=== PATIENT | female | born 1955 | race Two or more races ===

== ENCOUNTER 2021-01-20 20:21 | Inpatient (IN) | payer MEDICAID, OTHER ==
[~2021-01-20] VITALS: Ht 172.7 cm; Wt 59.0 kg
[2021-01-20] MEDS ORDERED: SODIUM CHLORIDE 0.9% 1,000 ML IV ONE (20:45)
[2021-01-20 22:04] LABS: Urine Bacteria FEW /hpf (None Seen); Urine Blood TRACE /uL (Negative); Urine Specific Gravity 1.011 (1.001-1.035); Urine WBC 4 /hpf (0 - 5)
[2021-01-20 22:07] LABS: Alcohol, Urine < 3.0 mg/dL (0-10); Amphetamine Screen, Urine NEGATIVE (NEGATIVE); Barbiturate Scree,Urine NEGATIVE (NEGATIVE); Benzodiazephine Screen, Urine NEGATIVE (NEGATIVE); Cannabinoid Screen, Urine NEGATIVE (NEGATIVE); Cocaine Screen, Urine NEGATIVE (NEGATIVE); Opiate Scree,Urine NEGATIVE (NEGATIVE); Phencyclidine Screen, Urine NEGATIVE (NEGATIVE)
[2021-01-20 22:25] LABS: Basophils # (auto) 0 10 ^3/uL (0-0.2); Basophils % (auto) 0.2 % (0.0-2.0); Eosinophils # (auto) 0.2 10 ^3/uL (0-0.8); Eosinophils % (auto) 1.5 % (0.0-7.0); Hematocrit 44.7 % (36.0-46.0); Hemoglobin 14.2 g/dL (12.2-16.2); Lymphocytes # (auto) 1.8 10 ^3/uL (0.4-5.4); Lymphocytes % (auto) 12.9 % (10.0-50.0); Mean Corpuscular Hemoglobin 28.2 pg (28.0-32.0); Mean Corpuscular Hgb Conc. 31.7 g/dL (32.0-36.0); Monocytes # (auto) 0.9 10 ^3/uL (0-1.3); Monocytes % (auto) 6.4 % (0.0-12.0); Neutrophils # (auto) 11.2 10 ^3/uL (1.6-8.6); Red Blood Cells 5.02 10^6/uL (4.0-5.20); Red Cell Distribution Width 15.7 % (11.8-14.3); White Blood Cell 14.2 10^3/uL (4.4-10.8)
[2021-01-20 22:39] LABS: Acetaminophen < 2.0 ug/mL (10-30); Salicylate 2.7 mg/dL (2.8-20.0)
[2021-01-20 22:40] LABS: Albumin 2.3 g/dL (3.4-5.0); Anion Gap 12 (5-15); BUN/Creatinine Ratio 14.9; Blood Urea Nitrogen 42 mg/dL (7-18); Calcium 8.1 mg/dL (8.5-10.1); Carbon Dioxide 20 mmol/L (21-32); Chloride 111 mmol/L (98-107); GFR African American 22 mL/min; GFR Non-African American 18 mL/min; Glucose 144 mg/dL (74-106); Lipase 18 U/L (73-393); Magnesium 2.7 mg/dL (1.6-2.6); Potassium 4.2 mmol/L (3.5-5.1); Sodium 143 mmol/L (136-145)
[2021-01-20 22:43] LABS: Alanine Aminotransferase 75 U/L (13-56); Alkaline Phosphatase 215 U/L (45-117); Aspartate Aminotransferase 75 U/L (15-37); Bilirubin, Total 0.2 mg/dL (0.2-1.0); Total Protein 6.8 g/dL (6.4-8.2)
[2021-01-20] MEDS ORDERED: NALOXONE HCL 2 MG in D5W 5% 495 ML IV ONE (23:30)
[2021-01-20] MEDS ORDERED: NALOXONE HCL 0.4 MG/ML VIAL ONE (23:50)
[2021-01-20] MEDS ORDERED: NALOXONE HCL 1MG/ML 2ML SYRINGE ONE (23:51)
[2021-01-21] MEDS ORDERED: ACETAMINOPHEN 325 MG TAB PO PRN (04:15)
[2021-01-21] MEDS ORDERED: ALBUMIN 25% 50 ML IV ONE (04:15)
[2021-01-21] MEDS ORDERED: MORPHINE SULFATE INJECTION 2 MG/ML SYRG IV PRN ×2 (04:15→18:30)
[2021-01-21] MEDS ORDERED: DOCUSATE SOD 100 MG CAP PO PRN (04:15)
[2021-01-21] MEDS ORDERED: ONDANSETRON HCL 4 MG/2 ML VIAL IV PRN (04:15)
[2021-01-21] MEDS ORDERED: NITROGLYCERIN 0.4 MG SL TAB SL PRN ×2 (04:15→18:30)
[2021-01-21] MEDS ORDERED: HYDROcodone-ACET 5/325MG TAB PO PRN (04:15)
[2021-01-21 05:24] LABS: Basophils # (auto) 0 10 ^3/uL (0-0.2); Basophils % (auto) 0.1 % (0.0-2.0); Eosinophils # (auto) 0.1 10 ^3/uL (0-0.8); Eosinophils % (auto) 0.7 % (0.0-7.0); Hematocrit 45.5 % (36.0-46.0); Hemoglobin 14.5 g/dL (12.2-16.2); Lymphocytes # (auto) 1.6 10 ^3/uL (0.4-5.4); Lymphocytes % (auto) 12.2 % (10.0-50.0); Mean Corpuscular Hemoglobin 29.2 pg (28.0-32.0); Mean Corpuscular Hgb Conc. 31.9 g/dL (32.0-36.0); Mean Corpuscular Volume 91.4 fL (80.0-100.0); Monocytes # (auto) 0.6 10 ^3/uL (0-1.3); Monocytes % (auto) 4.2 % (0.0-12.0); Neutrophils % (auto) 82.8 % (37.0-80.0); Nucleated Red Blood Cells % 0.1 %; Red Blood Cells 4.98 10^6/uL (4.0-5.20); Red Cell Distribution Width 15.8 % (11.8-14.3); White Blood Cell 13.3 10^3/uL (4.4-10.8)
[2021-01-21] MEDS: SODIUM CHLOR 0.9% PF (SALINE LOCK) 10ML VIAL/SYR IV SCH ×3 (06:00→23:45)
[2021-01-21 06:39] LABS: Albumin 2.3 g/dL (3.4-5.0); Anion Gap 13 (5-15); Blood Urea Nitrogen 44 mg/dL (7-18); Calcium 8.2 mg/dL (8.5-10.1); Carbon Dioxide 13 mmol/L (21-32); Chloride 116 mmol/L (98-107); Glucose 187 mg/dL (74-106); Potassium 4.4 mmol/L (3.5-5.1); Sodium 142 mmol/L (136-145)
[2021-01-21 06:43] LABS: Alanine Aminotransferase 75 U/L (13-56); Alkaline Phosphatase 228 U/L (45-117); Aspartate Aminotransferase 57 U/L (15-37); BUN/Creatinine Ratio 17.5; Bilirubin, Total 0.1 mg/dL (0.2-1.0); GFR African American 25 mL/min; GFR Non-African American 21 mL/min; Total Protein 6.9 g/dL (6.4-8.2)
[2021-01-21] MEDS ORDERED: AMMONIA 0.33 ML INHALANT IN ONE (07:28)
[2021-01-21] MEDS ORDERED: LABETALOL HCL 5 MG/ML 4ML SYRINGE IV ONE (08:00)
[2021-01-21] MEDS: cefTRIAXone 1GM/50ML D5W 50 ML IV SCH (09:29)
[2021-01-21] MEDS ORDERED: ZINC SULFATE 220mg CAP or TAB PO SCH (10:00)
[2021-01-21] MEDS ORDERED: ASCORBIC ACID 500 MG TAB PO SCH (10:00)
[2021-01-21] MEDS ORDERED: FAMOTIDINE (10MG/ML) 2ML VL IV SCH (10:00)
[2021-01-21] MEDS: hydrALAZINE HCL 20 MG/ML VL IV PRN (10:34)
[2021-01-21] MEDS: MULTIPLE VITAMIN TAB PO SCH (10:35)
[2021-01-21] MEDS: METOPROLOL TARTRATE 1MG/1ML-5ML VIAL IV PRN (14:17)
[2021-01-21] MEDS: SOD CHL 0.45% 1,000 ML IV SCH (15:00)
[2021-01-21] MEDS ORDERED: hydrALAZINE HCL 20 MG/ML VL IV PRN (15:15)
[2021-01-21] MEDS ORDERED: cloNIDine 0.1 mg/24hr 7 DAY PATCH TD SCH (16:00)
[2021-01-21 18:12] LABS: BUN/Creatinine Ratio 16.8; Calcium 8.4 mg/dL (8.5-10.1)
[2021-01-21] MEDS ORDERED: LORazepam 2MG/ML-1ML VIAL IV PRN (21:45)
[2021-01-21 21:55] LABS: Cholesterol 316 mg/dL (< 200)
[2021-01-21 21:58] LABS: HDL Cholesterol 64 mg/dL (40-59); LDL Cholesterol 212 mg/dL (< 100); Triglycerides 222 mg/dL (< 150)
[2021-01-21] MEDS: ATORVASTATIN 20 MG TAB PO SCH (22:00)
[2021-01-22] MEDS: SOD CHL 0.45% 1,000 ML IV SCH ×3 (01:18→21:20)
[2021-01-22 06:17] LABS: Basophils # (auto) 0.1 10 ^3/uL (0-0.2); Basophils % (auto) 0.7 % (0.0-2.0); Eosinophils # (auto) 0 10 ^3/uL (0-0.8); Eosinophils % (auto) 0.3 % (0.0-7.0); Hematocrit 39.2 % (36.0-46.0); Hemoglobin 12.7 g/dL (12.2-16.2); Lymphocytes # (auto) 1.6 10 ^3/uL (0.4-5.4); Lymphocytes % (auto) 12.9 % (10.0-50.0); Mean Corpuscular Hemoglobin 29.1 pg (28.0-32.0); Mean Corpuscular Hgb Conc. 32.3 g/dL (32.0-36.0); Mean Corpuscular Volume 89.9 fL (80.0-100.0); Monocytes # (auto) 0.9 10 ^3/uL (0-1.3); Neutrophils # (auto) 9.9 10 ^3/uL (1.6-8.6); Neutrophils % (auto) 79.1 % (37.0-80.0); Red Blood Cells 4.36 10^6/uL (4.0-5.20); Red Cell Distribution Width 15.7 % (11.8-14.3); White Blood Cell 12.5 10^3/uL (4.4-10.8)
[2021-01-22] MEDS: SODIUM CHLOR 0.9% PF (SALINE LOCK) 10ML VIAL/SYR IV SCH ×3 (06:24→22:29)
[2021-01-22 06:44] LABS: Albumin 2.2 g/dL (3.4-5.0); Bilirubin, Total 0.2 mg/dL (0.2-1.0); Calcium 8.1 mg/dL (8.5-10.1); Phosphorus 5.9 mg/dL (2.5-4.90); Total Protein 6.4 g/dL (6.4-8.2)
[2021-01-22 08:42] LABS: Urine Bacteria MANY /hpf (None Seen); Urine Blood 1+ /uL (Negative); Urine Budding Yeast MANY /hpf (None Seen); Urine Specific Gravity 1.018 (1.001-1.035); Urine WBC 96 /hpf (0 - 5); Urine WBC Clumps PRESENT /hpf (None Seen)
[2021-01-22 08:48] LABS: Creatinine, Urine 76 mg/dL (30.0-125.0); Sodium Urine 53 mmol/L (40-220)
[2021-01-22] MEDS: ASPirin 81 mg TAB PO SCH (10:00)
[2021-01-22] MEDS: MULTIPLE VITAMIN TAB PO SCH (10:00)
[2021-01-22] MEDS: cefTRIAXone 1GM/50ML D5W 50 ML IV SCH (10:23)
[2021-01-22] MEDS ORDERED: ACETAMINOPHEN 325 MG TAB PO PRN (13:30)
[2021-01-22] MEDS: hydrALAZINE HCL 20 MG/ML VL IV PRN ×2 (13:56→21:20)
[2021-01-22] MEDS: METOPROLOL TARTRATE 25 MG TAB PO SCH ×2 (17:37→22:30)
[2021-01-22] MEDS: ATORVASTATIN 20 MG TAB PO SCH (22:29)
[2021-01-22] MEDS: METOPROLOL TARTRATE 1MG/1ML-5ML VIAL IV PRN (23:22)
[2021-01-23 06:43] LABS: Basophils # (auto) 0.1 10 ^3/uL (0-0.2); Basophils % (auto) 0.5 % (0.0-2.0); Eosinophils # (auto) 0.1 10 ^3/uL (0-0.8); Hematocrit 39.7 % (36.0-46.0); Hemoglobin 13.5 g/dL (12.2-16.2); Lymphocytes % (auto) 17.1 % (10.0-50.0); Mean Corpuscular Hemoglobin 29.6 pg (28.0-32.0); Mean Corpuscular Volume 87.1 fL (80.0-100.0); Monocytes # (auto) 0.7 10 ^3/uL (0-1.3); Monocytes % (auto) 6.2 % (0.0-12.0); Neutrophils # (auto) 8.8 10 ^3/uL (1.6-8.6); Neutrophils % (auto) 75.2 % (37.0-80.0); Red Blood Cells 4.56 10^6/uL (4.0-5.20); Red Cell Distribution Width 15.7 % (11.8-14.3); White Blood Cell 11.7 10^3/uL (4.4-10.8)
[2021-01-23] MEDS: SODIUM CHLOR 0.9% PF (SALINE LOCK) 10ML VIAL/SYR IV SCH ×3 (06:53→20:05)
[2021-01-23] MEDS: SOD CHL 0.45% 1,000 ML IV SCH (06:55)
[2021-01-23 06:56] LABS: Calcium 8.1 mg/dL (8.5-10.1); Potassium 3.7 mmol/L (3.5-5.1)
[2021-01-23 06:58] LABS: BUN/Creatinine Ratio 19.9
[2021-01-23] MEDS: cefTRIAXone 1GM/50ML D5W 50 ML IV SCH (09:00)
[2021-01-23] MEDS ORDERED: SODIUM BICARBONATE 50ML VIAL 50 ML in SOD CHL 0.45% 1,000 ML IV SCH (09:45)
[2021-01-23] MEDS: ASPirin 81 mg TAB PO SCH (09:58)
[2021-01-23] MEDS: METOPROLOL TARTRATE 25 MG TAB PO SCH (09:59)
[2021-01-23] MEDS: MULTIPLE VITAMIN TAB PO SCH (09:59)
[2021-01-23] MEDS ORDERED: FAMOTIDINE (10MG/ML) 2ML VL IV SCH (10:00)
[2021-01-23 10:04] LABS: Folate (Folic Acid) > 24.00 ng/mL (5.38-24)
[2021-01-23] MEDS: SODIUM BICARBONATE 50ML VIAL 50 ML in SOD CHL 0.45% 1,000 ML IV SCH ×2 (10:15→20:05)
[2021-01-23] MEDS ORDERED: METOPROLOL TARTRATE 25 MG TAB PO ONE (11:30)
[2021-01-23] MEDS ORDERED: LORazepam 2MG/ML-1ML VIAL IV ONE (12:00)
[2021-01-23] MEDS: hydrALAZINE HCL 25 MG TAB PO SCH ×2 (14:18→20:56)
[2021-01-23] MEDS: METOPROLOL TARTRATE 50 MG TAB PO SCH (20:57)
[2021-01-23] MEDS ORDERED: ATORVASTATIN 20 MG TAB PO SCH (22:00)
[2021-01-24] MEDS: hydrALAZINE HCL 20 MG/ML VL IV PRN ×2 (01:13→15:50)
[2021-01-24 05:54] LABS: Basophils # (auto) 0.1 10 ^3/uL (0-0.2); Basophils % (auto) 0.7 % (0.0-2.0); Eosinophils # (auto) 0.1 10 ^3/uL (0-0.8); Eosinophils % (auto) 1.2 % (0.0-7.0); Hematocrit 34.9 % (36.0-46.0); Hemoglobin 11.5 g/dL (12.2-16.2); Lymphocytes # (auto) 2.1 10 ^3/uL (0.4-5.4); Lymphocytes % (auto) 19.9 % (10.0-50.0); Mean Corpuscular Hemoglobin 28.9 pg (28.0-32.0); Mean Corpuscular Hgb Conc. 32.9 g/dL (32.0-36.0); Monocytes # (auto) 0.8 10 ^3/uL (0-1.3); Monocytes % (auto) 7.6 % (0.0-12.0); Neutrophils # (auto) 7.5 10 ^3/uL (1.6-8.6); Neutrophils % (auto) 70.6 % (37.0-80.0); Red Blood Cells 3.97 10^6/uL (4.0-5.20); Red Cell Distribution Width 15.6 % (11.8-14.3); White Blood Cell 10.6 10^3/uL (4.4-10.8)
[2021-01-24] MEDS: hydrALAZINE HCL 25 MG TAB PO SCH ×3 (06:09→14:00)
[2021-01-24] MEDS: SODIUM CHLOR 0.9% PF (SALINE LOCK) 10ML VIAL/SYR IV SCH ×2 (06:09→14:00)
[2021-01-24 06:20] LABS: Potassium 3.8 mmol/L (3.5-5.1)
[2021-01-24 06:26] LABS: BUN/Creatinine Ratio 20.1; Calcium 7.4 mg/dL (8.5-10.1)
[2021-01-24] MEDS: SODIUM BICARBONATE 50ML VIAL 50 ML in SOD CHL 0.45% 1,000 ML IV SCH (07:30)
[2021-01-24] MEDS: cefTRIAXone 1GM/50ML D5W 50 ML IV SCH (09:00)
[2021-01-24] MEDS: ASPirin 81 mg TAB PO SCH (10:00)
[2021-01-24] MEDS ORDERED: amLODIPine BESYLATE 5 MG TAB PO SCH (10:00)
[2021-01-24] MEDS: METOPROLOL TARTRATE 50 MG TAB PO SCH (10:00)
[2021-01-24] MEDS: MULTIPLE VITAMIN TAB PO SCH (10:00)
[2021-01-24] MEDS ORDERED: HYDR25TA87 PO (13:34)
[2021-01-24] MEDS ORDERED: AML5T PO (13:34)
[2021-01-24] MEDS ORDERED: ATOR20TA50 PO (13:34)
[2021-01-24] MEDS ORDERED: MET50T PO (13:34)
[2021-01-24] MEDS ORDERED: ASPI1CHW15 PO (13:34)
[2021-01-24] MEDS ORDERED: CLON0.2T PO (13:34)
[2021-01-24] MEDS ORDERED: LEVO500T31 PO (13:35)
[2021-01-24 16:07] VITALS: BP 167/70
== END 2021-01-24 19:39 | disposition hospice, home (50) | DRG 812 ==
LOC: ER 20:21 → TELE 01-21 04:14 → EDBD 01-21 04:14 → TELE 01-24 19:40
PROVIDERS: ADMIT Internal Medicine; ATTEND Internal Medicine
DX: T40.601A Poisoning by unspecified narcotics, accidental (unintentional), initial encounter (principal); N17.0 Acute kidney failure with tubular necrosis; G92 Toxic encephalopathy; E87.2 Acidosis; E83.41 Hypermagnesemia; E11.22 Type 2 diabetes mellitus with diabetic chronic kidney disease; D72.829 Elevated white blood cell count, unspecified; E88.09 Other disorders of plasma-protein metabolism, not elsewhere classified; G82.20 Paraplegia, unspecified; G81.94 Hemiplegia, unspecified affecting left nondominant side; N18.4 Chronic kidney disease, stage 4 (severe); N39.0 Urinary tract infection, site not specified; E11.65 Type 2 diabetes mellitus with hyperglycemia; I16.1 Hypertensive emergency; F10.10 Alcohol abuse, uncomplicated; Z20.822 Contact with and (suspected) exposure to COVID-19; E78.5 Hyperlipidemia, unspecified; I12.9 Hypertensive chronic kidney disease with stage 1 through stage 4 chronic kidney disease, or unspecified chronic kidney disease; Z79.82 Long term (current) use of aspirin; Z79.899 Other long term (current) drug therapy
CPT/HCPCS: 36415; 70450; 70551; 71045; 72128; 72146; 76775; 80048; 80053; 80061; 80307; 80320; 80329; 81001; 82140; 82550; 82570; 82607; 82746; 82962; 83036; 83605; 83690; 83735; 84100; 84300; 84443; 84484; 85025; 87040; 87086; 87088; 87426; 92610; 93005; 93306; 93886; 93971; 95819; 96361; 96365; 96375; G0378; J0696; J3490; J7042